=== PATIENT | female | born 1935 | race Caucasian/White ===

== ENCOUNTER 2016-07-21 14:02 | Outpatient (CLI) | payer MEDICARE, OTHER ==
--- NOTE | 2016-07-22 14:01 | OP Clinic Progress Note ---
REFERRING PHYSICIAN: REINALDO Renner REASON FOR VISIT: This pleasant lady is seen with a hearing loss in the right ear. She has a history of cerumen impaction maybe 5 years ago. She has right greater than left cerumen. Under a microscope, I directly micro debrided both ears of 100% obstruction in the right ear and 50% obstruction in the left ear. Patient tolerated the procedure well. She has fairly angulated ear canals. However, other than that, the ear canals and eardrums are normal. PLAN: Patient is discharged. With her history of getting wax impactions, perhaps the last time being 5 years ago, I do not think I would recommend any specific treatment. She simply ought to get them recleaned in 4 to 5 years. cc: REINALDO Renner [facility] CENTERCorey
== END 2016-07-21 14:03 ==
LOC: ENT 14:02
PROVIDERS: ATTEND Otolaryngology
DX: H61.23 Impacted cerumen, bilateral (principal)
CPT/HCPCS: 69210; G0463

== ENCOUNTER 2016-09-30 08:23 | Emergency (ER) | payer MEDICARE, OTHER ==
[2016-09-30] MEDS ORDERED: ASPIRIN 81 MG CHEW TAB ONE (08:40)
[2016-09-30] MEDS ORDERED: 0.9 % SODIUM CHLORIDE 1,000 ML IV ONE (08:40)
[2016-09-30] MEDS ORDERED: HEPARIN IV ONE (08:40)
[2016-09-30] MEDS ORDERED: DEXTROSE IV ONE (08:40)
[2016-09-30 08:48] LABS: BASOPHILS % 0.5 (0.0-1.5); EOSINOPHILS % 2.1 % (0.0-6.8); MEAN CORPUSCULAR HEMOGLOBIN 31.3 pg (28.0-34.0); MEAN CORPUSCULAR VOLUME 93.4 fl (80.0-100.0); MONOCYTES % 4.6 % (0.0-11.0); NEUTROPHILS # 5.7 # k/uL (1.4-7.7)
[2016-09-30] MEDS: 0.9 % SODIUM CHLORIDE 1,000 ML IV SCH (09:00)
[2016-09-30] MEDS: ASPIRIN 81 MG CHEW TAB PO ONE (09:00)
[2016-09-30 09:04] LABS: eGFR (African) > 60; eGFR (Non-African) > 60
[2016-09-30] MEDS ORDERED: ATROPINE SULFATE 0.1 MG/ML DISP.SYRIN ONE ×2 (09:48→09:59)
[2016-09-30] MEDS: ATROPINE SULFATE 0.1 MG/ML DISP.SYRIN IVP ONE (09:55)
--- NOTE | 2016-09-30 11:13 | ED Physician Documentation ---
General Adult - HISTORIAN Historian: patient, spouse - HPI Stated Complaint: weakness, nausea, vomiting Chief Complaint: General Adult Additional Information: pt to ed c/o feeling waves of nausea near syncope no emesis 0nset yest am while still in bed approx 0800. then some better but worse again this am. Timing: still present, worse Severity: moderate Further Comments: yes (has lbbb uncertain if new or not) - ROS CONST: no problems EYES/ENT: none CVS/RESP: none GI/: none, nausea MS/SKIN/LYMPH: none NEURO/PSYCH: dizziness (very slight). denies: headache, fainting - PAST HX Past History: other (hi chol and gerd but husb says bp last noct 183) Surgeries/Procedures: cholecystectomy Allergies/Adverse Reactions: Allergies Allergy/AdvReac Type Severity Reaction Status Date / Time Sulfa (Sulfonamide Allergy Severe Hives Unverified 09/30/16 08:54 Antibiotics) citalopram Allergy Intermediate rash Unverified 09/30/16 08:54 - SOCIAL HX Smoking History: non-smoker Alcohol Use: none Drug Use: none - FAMILY HX Family History: No - REVIEWED ASSESSMENTS Nursing Assessment Reviewed: Yes Vitals Reviewed: Yes Progress - Additional EKG/XRAY/Consults Comments: this pt had brief asystole when set up ;for orthostatics-she also had ret o Comments: of dizziness. the monitor showed brief asystole. later she had asystole w Comments: while supine ED Results Lab/Radiology - Lab Results Lab Results: Lab Results 09/30/16 08:40 WBC 9.00 K/ul K/ul (4.00-12.00) RBC 4.78 M/ul M/ul (3.90-5.20) Hgb 15.0 g/dL g/dL (12.0-16.0) Hct 44.6 % % (34.5-46.5) MCV 93.4 fl fl (80.0-100.0) MCH 31.3 pg pg (28.0-34.0) MCHC 33.5 g/dL g/dL (30.0-36.0) RDW 12.7 % % (11.3-14.3) Plt Count 173 K/mm3 K/mm3 (130-400) Neut % (Auto) 63.5 % % (39.0-79.0) Lymph % (Auto) 28.3 % % (16.0-50.0) [place] % (Auto) 4.6 % % (0.0-11.0) Eos % (Auto) 2.1 % % (0.0-6.8) Baso % (Auto) 0.5 (0.0-1.5) Neut # (Auto) 5.7 # k/uL # k/uL (1.4-7.7) Lymph # (Auto) 2.6 # k/uL # k/uL (0.6-4.0) [place] # (Auto) 0.4 # k/uL # k/uL (0.0-0.9) Eos # (Auto) 0.2 # k/uL # k/uL (0.0-0.6) Baso # (Auto) 0.0 # k/uL # k/uL (0.0-0.5) Reactive Lymphs % 0.9 % % (0.0-5.0) Reactive Lymphs # 0.1 # k/uL # k/uL (0.0-0.8) - Radiology Radiology Impressions: ekg shows cardiomegally - Orders Orders: ED Orders Category Date Time Status Continuous EKG monitoring Q30M Care 09/30/16 08:39 Ordered Continuous Pulse Oximetry Q30M Care 09/30/16 08:39 Ordered CHEST 1 VIEW [RAD] Stat Exams 09/30/16 08:39 Ordered CBC/PLATELET/DIFF Routine Lab 09/30/16 08:39 Ordered CMP Routine Lab 09/30/16 08:39 Ordered CREATINE KINASE Routine Lab 09/30/16 08:39 Ordered TROPONIN I (cTnI) Stat Lab 09/30/16 08:39 Ordered 0.9 % Sodium Chloride [Normal Saline] 1,000 ml Med 09/30/16 08:40 Discontinued IV .STK-MED Aspirin Med 09/30/16 08:40 Discontinued 324 mg .ROUTE .STK-MED ONE Aspirin Med 09/30/16 08:38 Once 324 mg PO NOW ONE Heparin Sodium,Porcine/D5w [Heparin] Med 09/30/16 08:40 Discontinued 20,000 unit in 500 ml IV .STK-MED Oxygen Daily Oxygen 09/30/16 08:45 Ordered EKG WITH COMPARISON Stat Ther 09/30/16 08:39 Ordered General Adult Physical Exam - PHYSICAL EXAM GENERAL APPEARANCE: mild distress EENT: eye inspection normal NECK: normal inspection, thyroid normal, supple RESPIRATORY: no resp distress, chest non-tender, breath sounds normal CVS: reg rate & rhythm, heart sounds normal ABDOMEN: soft, non-tender SKIN: warm/dry, normal color. 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 she responded to atropine. and tnsf via [employer] to [facility]--DR HOLMAN accepting via nurse coordnitor. DR GÓMEZ WAS NOTIFIED AND PARTICIPATED IN HER CARE AND FAMILY ADVISEMENT. Condition: Fair Disposition: 02 XFER [facility] Decision to Admit: [id number] Decision Time: 09:25
[2016-09-30 12:01] VITALS: BP 184/84
--- NOTE | 2016-09-30 14:11 | Diagnostic Imaging Report ---
[facility] [id number] [facility].[address] [address] Report Submission Date: Sep 30, 2016 8:59:46 AM CDT Patient Study Name: FRANCIA MURCIA Date: Sep 30, 2016 8:41:33 AM CDT Modality Type: CR Gender: F Description: CHEST : 35 Institution: [facility] Physician ALONDRA XIE - ER EXAMINATION: Portable chest, one view. HISTORY: Chest pain. FINDINGS: The heart is mildly enlarged. Mild central vascular prominence is present. There is no pleural effusion present. There is no pneumothorax. The osseous structures are normal. IMPRESSION: 1. Cardiomegaly with mild central vascular prominence. Electronically signed on Sep 30, 2016 8:59:46 AM CDT by: Anthony DELVALLE
== END 2016-09-30 10:25 | disposition short-term general hospital (02) ==
LOC: ED 08:23
DX: I44.1 Atrioventricular block, second degree (principal)
CPT/HCPCS: 51702; 71010; 80053; 82550; 84484; 85025; 93005; J0461; J7030; 96361; 96365; 99284; J1644; S1016

== ENCOUNTER → 2016-10-15 | Outpatient (CLI) | payer MEDICARE, OTHER ==
[2016-09-30 12:01] VITALS: BP 184/84
== END ==
LOC: LAB 09:24
PROVIDERS: ATTEND Internal Medicine Cardiovascular Disease
DX: I50.9 Heart failure, unspecified (principal)
CPT/HCPCS: 36415; 80048

== ENCOUNTER 2016-10-19 11:07 | Outpatient (CLI) | payer MEDICARE, OTHER ==
[2016-10-19 12:04] LABS: eGFR (African) > 60; eGFR (Non-African) > 60
== END 2016-10-19 11:10 ==
LOC: LAB 11:07
PROVIDERS: ATTEND Family Medicine
DX: E87.1 Hypo-osmolality and hyponatremia (principal)
CPT/HCPCS: 36415; 80048

== ENCOUNTER 2016-11-04 08:50 | Outpatient (CLI) | payer MEDICARE, OTHER ==
[2016-11-04 09:56] LABS: eGFR (African) > 60; eGFR (Non-African) > 60
== END 2016-11-04 08:53 ==
LOC: LAB 08:50
PROVIDERS: ATTEND Family Medicine
DX: E87.1 Hypo-osmolality and hyponatremia (principal); E78.5 Hyperlipidemia, unspecified
CPT/HCPCS: 36415; 80048; 80061

== ENCOUNTER 2016-12-22 08:42 | Outpatient (CLI) | payer MEDICARE, OTHER ==
[2016-12-22 08:49] LABS: BASOPHILS % 0.6 (0.0-1.5); EOSINOPHILS % 3.1 % (0.0-6.8); MEAN CORPUSCULAR HEMOGLOBIN 31.4 pg (28.0-34.0); MEAN CORPUSCULAR VOLUME 93.8 fl (80.0-100.0); MONOCYTES % 5.8 % (0.0-11.0); NEUTROPHILS # 5.7 # k/uL (1.4-7.7)
[2016-12-22 09:25] LABS: eGFR (African) > 60; eGFR (Non-African) > 60
== END 2016-12-22 08:44 ==
LOC: LABRHC 08:42
PROVIDERS: ATTEND Family Medicine
DX: R42 Dizziness and giddiness (principal)
CPT/HCPCS: 80053; 85025

== ENCOUNTER 2017-01-10 10:50 | Outpatient (CLI) | payer MEDICARE, OTHER ==
[2017-01-10 21:21] LABS: T3-UPTAKE 31.1 % (25.4-41.2)
== END 2017-01-10 10:52 ==
LOC: LAB 10:50
PROVIDERS: ATTEND Family Medicine
DX: R73.9 Hyperglycemia, unspecified (principal); R53.82 Chronic fatigue, unspecified
CPT/HCPCS: 36415; 83036; 84436; 84479

== ENCOUNTER 2017-12-07 10:55 | Outpatient (CLI) | payer MEDICARE, OTHER ==
[2017-12-07 11:41] LABS: eGFR (African) > 60; eGFR (Non-African) > 60
[2017-12-07 11:51] LABS: BASOPHILS % 0.5 (0.0-1.5); EOSINOPHILS % 1.9 % (0.0-6.8); MEAN CORPUSCULAR HEMOGLOBIN 31.9 pg (28.0-34.0); MEAN CORPUSCULAR VOLUME 94.9 fl (80.0-100.0); MONOCYTES % 5.7 % (0.0-11.0); NEUTROPHILS # 4.4 # k/uL (1.4-7.7)
== END 2017-12-07 10:56 ==
LOC: LAB 10:55
PROVIDERS: ATTEND Family Medicine
DX: R53.82 Chronic fatigue, unspecified (principal); E78.5 Hyperlipidemia, unspecified; I10 Essential (primary) hypertension; R73.9 Hyperglycemia, unspecified
CPT/HCPCS: 36415; 80053; 80061; 83036; 84443; 85025

== ENCOUNTER 2018-03-13 10:46 | Outpatient (CLI) | payer MEDICARE, OTHER ==
[2018-03-13 11:31] LABS: eGFR (Non-African) > 60
--- NOTE | 2018-03-13 11:57 | Diagnostic Imaging Report ---
SOLITARIO HUYNH [facility] [address] [facility].[address] [address] Report Submission Date: Mar 13, 2018 11:29:01 AM [employer] Patient Study Name: FRANCIA MURCIA Date: Mar 13, 2018 11:05:16 AM [employer] Modality Type: DX Gender: F Description: CHEST : 35 Institution: [facility] Physician: SOLITARIO HUYNH PA and lateral chest History: Diaphoresis. Dizzy spells PA and lateral chest dated March 13, 2018 is compared with September 30, 2016. The heart is mildly enlarged, unchanged given differences in technique. There is a new triple lead pacing device. Pulmonary vascularity is normal. Lungs are clear. There is no pleural effusion. Impression: New triple lead pacing device. Mild, unchanged cardiomegaly. No active disease. Electronically signed on Mar 13, 2018 11:29:01 AM [employer] by: Riddhi DELVALLE
== END 2018-03-13 10:47 ==
LOC: RT 10:46
PROVIDERS: ATTEND Family Medicine
DX: R61 Generalized hyperhidrosis (principal); R42 Dizziness and giddiness
CPT/HCPCS: 71046; 80053; 84484